=== PATIENT | female | born 1970 | race Caucasian/White ===

== ENCOUNTER 2022-09-04 08:22 | Outpatient (CLI) | payer OTHER, SELFPAY | END 2022-09-04 08:23 | disposition home or self-care (01) | LOC: NFLDREF 15:05 | PROVIDERS: Visit Provider Obstetrics & Gynecology | DX: N95.1 Menopausal and female climacteric states (principal); Z78.0 Asymptomatic menopausal state | CPT/HCPCS: 82670; 83002; 84439; 84443 ==

== ENCOUNTER 2022-09-13 08:38 | Outpatient (CLI) | payer OTHER, SELFPAY | END 2022-09-13 08:39 | disposition home or self-care (01) | LOC: NFLDREF 08:40 | PROVIDERS: Visit Provider Obstetrics & Gynecology | DX: N95.1 Menopausal and female climacteric states (principal) | CPT/HCPCS: 83001 ==

== ENCOUNTER 2023-06-19 15:42 | Outpatient (CLI) | payer OTHER, SELFPAY | END 2023-06-19 15:43 | disposition home or self-care (01) | LOC: NFLDREF 06-20 07:43 | PROVIDERS: Visit Provider Registered Nurse | DX: N30.00 Acute cystitis without hematuria (principal); B96.20 Unspecified Escherichia coli [E. coli] as the cause of diseases classified elsewhere | CPT/HCPCS: 87086; 87186 ==

== ENCOUNTER 2024-06-30 06:33 | Outpatient (CLI) | payer BC, SELFPAY ==
--- NOTE | 2024-06-30 07:48 | P.ANES_ITS ---
Anesthesia Charges Start Date/Time Anesthesia Start Date: 06/30/24 Anesthesia Start Time: 07:19 Stop Date/Time Anesthesia Stop Date: 06/30/24 Anesthesia Stop Time: 07:45 Coding CPT Codes CPT Codes: ANES LWR INTST SCR COLSC - 62941 ([id number]) P2 - PATIENT W/MILD SYST DISEASE, QK - PANTOMIMIST 2-4 CNCRNT ANES PROC, QX - VOLUNTEER RECRUITMENT COORDINATOR SVC W/ MD MED DIRECTION
--- NOTE | 2024-06-30 07:48 | W.ANESCHARGE ---
Anesthesia Charges Start Date/Time Anesthesia Start Date: 06/30/24 Anesthesia Start Time: 07:19 Stop Date/Time Anesthesia Stop Date: 06/30/24 Anesthesia Stop Time: 07:45 Coding CPT Codes CPT Codes: ANES LWR INTST SCR COLSC - [id number] ([id number]) P2 - PATIENT W/MILD SYST DISEASE, QK - RECYCLING ASSISTANT 2-4 CNCRNT ANES PROC, QX - SLIPPER MAKER SVC W/ MD MED DIRECTION
--- NOTE | 2024-06-30 08:23 | P.ANES_ITS ---
Anesthesia Charges Start Date/Time Anesthesia Start Date: 06/30/24 Anesthesia Start Time: 07:19 Stop Date/Time Anesthesia Stop Date: 06/30/24 Anesthesia Stop Time: 07:45 Coding CPT Codes CPT Codes: ANNELISE LWR INTST SCR COLSC - [id number] ([id number]) QK - TOWER DRAGLINE OPERATOR 2-4 CNCRNT ANNELISE PROC, QX - BACKEND DEVELOPER SVC W/ MD MED DIRECTION, P2 - PATIENT W/MILD SYST DISEASE
--- NOTE | 2024-06-30 08:23 | W.ANESCHARGE ---
Anesthesia Charges Start Date/Time Anesthesia Start Date: 06/30/24 Anesthesia Start Time: 07:19 Stop Date/Time Anesthesia Stop Date: 06/30/24 Anesthesia Stop Time: 07:45 Coding CPT Codes CPT Codes: ANNELISE LWR INTST SCR COLSC - 27354 ([id number]) QK - RN POOL 2-4 CNCRNT ANNELISE PROC, QX - APPLICATION INFRASTRUCTURE ENGINEER SVC W/ MD MED DIRECTION, P2 - PATIENT W/MILD SYST DISEASE
== END 2024-06-30 06:34 | disposition home or self-care (01) ==
LOC: OP CLINIC 06:36
PROVIDERS: PCP Family Medicine; Visit Provider Surgery
DX: K92.1 Melena (principal)
CPT/HCPCS: 00812; 45378; J2704

== ENCOUNTER 2024-08-28 15:40 | Outpatient (CLI) | payer BC, SELFPAY ==
--- NOTE | 2024-08-28 15:40 | CRLHL7_ITS ---
For Patients: As a result of the Century Cures Act, medical imaging exams and procedure reports are released immediately into your electronic medical record. You may view this report before your referring provider. If you have questions, please contact your health care provider. BILATERAL SCREENING MAMMOGRAM WITH COMPUTER-AIDED DETECTION AND TOMOSYNTHESIS TECHNIQUE: CC and MLO views were obtained. These mammographic images have been obtained using full-field digital technique. These mammographic images were interpreted with the benefit of computer-aided detection. Breast Tomosynthesis was used in this interpretation. COMPARISON FILM: 03/16/22. FINDINGS: There are scattered areas of fibroglandular density. IMPRESSION: There is no radiographic evidence for malignancy. ASSESSMENT: BI-RADS Category 1: Negative RECOMMENDATION: Routine screening mammogram in 1 year. A lay language report of this examination will be provided to the patient. Josep No M.D. Diagnostic Radiologist [email or web address] SP/Dictated by: Josep No MD @ 08/29/2024 1:06:00 PM (Electronically Signed)
== END 2024-08-28 15:41 | disposition home or self-care (01) ==
LOC: MAMMO 15:41
PROVIDERS: PCP Family Medicine; Visit Provider Obstetrics & Gynecology
DX: Z12.31 Encounter for screening mammogram for malignant neoplasm of breast (principal)
CPT/HCPCS: 77063; 77067